=== PATIENT | male | born 1960 ===

== ENCOUNTER 2017-11-12 09:46 | Outpatient (CLI) | payer OTHER ==
[~2017-11-12] VITALS: Ht 175.3 cm; Wt 104.3 kg
== END 2017-11-12 10:00 | disposition home or self-care (01) ==
LOC: OFIC 805 09:46
DX: K21.9 Gastro-esophageal reflux disease without esophagitis (principal); J33.8 Other polyp of sinus; J32.8 Other chronic sinusitis; J34.89 Other specified disorders of nose and nasal sinuses

== ENCOUNTER 2018-03-17 11:42 | Outpatient (CLI) | payer OTHER ==
[~2018-03-17] VITALS: Ht 152.4 cm; Wt 104.3 kg
== END 2018-03-17 12:00 | disposition home or self-care (01) ==
LOC: OFIC 805 11:42
DX: J01.80 Other acute sinusitis (principal); J34.89 Other specified disorders of nose and nasal sinuses

== ENCOUNTER 2018-06-13 11:29 | Outpatient (CLI) | payer OTHER ==
[~2018-06-13] VITALS: Ht 152.4 cm; Wt 104.3 kg
== END 2018-06-13 11:40 | disposition home or self-care (01) ==
LOC: OFIC 805 11:29
DX: H61.21 Impacted cerumen, right ear (principal); J32.8 Other chronic sinusitis; J33.0 Polyp of nasal cavity; J34.89 Other specified disorders of nose and nasal sinuses

== ENCOUNTER 2018-07-28 15:30 | Outpatient (CLI) | payer OTHER ==
[~2018-07-28] VITALS: Ht 152.4 cm; Wt 104.3 kg
== END 2018-07-28 15:45 | disposition home or self-care (01) ==
LOC: OFIC 805 15:30
DX: J34.89 Other specified disorders of nose and nasal sinuses (principal); J32.8 Other chronic sinusitis; J33.8 Other polyp of sinus

== ENCOUNTER 2018-09-19 10:52 | Outpatient (CLI) | payer OTHER ==
[~2018-09-19] VITALS: Ht 152.4 cm; Wt 102.1 kg
== END 2018-09-19 11:10 | disposition home or self-care (01) ==
LOC: OFIC 805 10:52
DX: J34.89 Other specified disorders of nose and nasal sinuses (principal); J32.8 Other chronic sinusitis; J33.8 Other polyp of sinus; K21.0 Gastro-esophageal reflux disease with esophagitis; M54.81 Occipital neuralgia

== ENCOUNTER 2019-06-27 12:19 | Outpatient (CLI) | payer OTHER ==
[~2019-06-27] VITALS: Ht 152.4 cm; Wt 104.3 kg
== END 2019-06-27 14:01 | disposition home or self-care (01) ==
LOC: OFIC 805 12:19
DX: J32.8 Other chronic sinusitis (principal); J34.89 Other specified disorders of nose and nasal sinuses; J30.89 Other allergic rhinitis; H61.23 Impacted cerumen, bilateral